=== PATIENT | female | born 1970 | race Caucasian/White ===

== ENCOUNTER 2022-03-02 10:23 | Day surgery (SDC) | payer BC ==
[2022-03-02] MEDS ORDERED: Sodium Chloride 0.9% 1,000 ML IV SCH (11:00)
[2022-03-02] MEDS ORDERED: Propofol 200 MG/20 ML SDV ONE (12:01)
[2022-03-02] MEDS ORDERED: Midazolam 1 MG/ML 2 ML SDV ONE (12:01)
== END 2022-03-02 14:00 | disposition home or self-care (01) ==
LOC: JP.SDS 10:23
PROVIDERS: ATTEND Surgery
DX: Z12.11 Encounter for screening for malignant neoplasm of colon (principal); I10 Essential (primary) hypertension; E66.01 Morbid (severe) obesity due to excess calories
CPT/HCPCS: 45378; J2250; J2704; J7030